=== PATIENT | female | born 1960 | race African-American/Black ===

== ENCOUNTER → 2016-03-12 | Outpatient (CLI) | payer OTHER ==
[~2016-03-12] MED LIST: ADVIL LIQUI-GE200 MG; ALEVE220 MG PO; AMLODIPINE BESY10 MG; AMOXICILLIN 50500 M1 PO; CIPROFLOXACIN500 M1 PO; FLAGYL500 MG PO; NORVASC10 MG PO
== END ==
LOC: HYPER 07:05
DX: I89.0 Lymphedema, not elsewhere classified (principal); I10 Essential (primary) hypertension

== ENCOUNTER → 2016-06-18 | Outpatient (CLI) | payer OTHER | LOC: HYPER 04-09 15:42 | DX: I89.0 Lymphedema, not elsewhere classified (principal); I10 Essential (primary) hypertension ==

== ENCOUNTER → 2016-07-16 | Outpatient (CLI) | payer OTHER | LOC: HYPER 07:09 | DX: I89.0 Lymphedema, not elsewhere classified (principal); I10 Essential (primary) hypertension ==

== ENCOUNTER → 2016-08-12 | Outpatient (CLI) | payer OTHER | LOC: HYPER 07:03 | DX: I89.0 Lymphedema, not elsewhere classified (principal); I10 Essential (primary) hypertension ==

== ENCOUNTER 2016-08-27 13:26 | Emergency (ER) | payer OTHER ==
[~2016-08-27] VITALS: Ht 149.9 cm; Wt 91.2 kg
[2016-08-27] MEDS ORDERED: PLAVIX 300 MG300 M1 PO (13:43)
[2016-08-27] MEDS ORDERED: NORCO 10-325 T1 EACH PO (13:43)
[2016-08-27] MEDS ORDERED: HYDROCHLOROTH12.5 M1 PO (13:44)
[2016-08-27] MEDS ORDERED: LISINOPRIL20 MG PO (13:46)
[2016-08-27] MEDS ORDERED: NORCO 5-325 TA1 EACH PO (14:05)
[2016-08-27 14:19] VITALS: BP 162/85
== END 2016-08-27 14:06 | disposition home or self-care (01) ==
LOC: ER 13:26
DX: M25.552 Pain in left hip (principal); G89.29 Other chronic pain; M54.5 Low back pain; I89.0 Lymphedema, not elsewhere classified; I10 Essential (primary) hypertension; M41.9 Scoliosis, unspecified

== ENCOUNTER 2017-02-08 09:20 | Inpatient (IN) | payer OTHER ==
[~2017-02-08] VITALS: Ht 149.9 cm; Wt 76.7 kg
--- NOTE | ~2017-02-08 | HC ---
[facility] [place] [address] CONSULTATION Name: DULCE MARIA WELLS Room #: 424-[facility] IN M.R.#: [id number] Admission: 02/08/17 Attend Phys: Mejia Aldridge MD Discharge: 02/11/17 Date of : 60 Report #: [id number] THIS REPORT FOR: //name// CC: Mejia Hsieh DATE OF SERVICE: 02/08/2017 REASON FOR CONSULTATION: Chronic lymphedema of lower extremities with cellulitis. HISTORY OF PRESENT ILLNESS: The patient is a very pleasant, nondiabetic, 57-year-old woman, seen many times in the past by Dr. Flaco Hsieh in the clinic. She suffers from chronic lymphedema of unknown etiology. She has been under the care recently of the Lymphedema Clinic with lymphedema wraps. The patient presented herself to the ER, knowing that her lower extremities were more swollen, more red, more painful and draining. She particularly had some pain in the area of the knees. She had more difficulty ambulating. Wound care was consulted due to cellulitis of her legs and wounds noted in her skin creases of the legs. PAST MEDICAL HISTORY: Asthma, hypertension and chronic lymphedema. MEDICATIONS: Include Plavix, lisinopril and hydrochlorothiazide. ALLERGIES: No known drug allergies. SOCIAL HISTORY: The patient lives with a friend. FAMILY HISTORY: Noncontributory. REVIEW OF SYSTEMS: Redness and pain in the legs. PHYSICAL EXAMINATION: GENERAL: Shows mildly febrile 57-year-old woman. VITAL SIGNS: Temperature 38, blood pressure 166/82 and pulse 100. HEENT: Mucous membranes are moist. NECK: Supple. LUNGS: Respirations unlabored. ABDOMEN: Obese. EXTREMITIES: Examination of the lower extremities shows chronic lymphedema of both lower extremities, which is marked. There were deep skin creases particularly behind the left knee, in the right knee and also at the ankle in the skin creases. There is excess moisture and the skin is macerated and there is a foul odor. There is no open wound. There is some mild redness and tenderness of the lower extremities, particularly in these areas. [address] [address] CONSULTATION Name: DULCE MARIA WELLS Room #: 424-[facility] IN M.R.#: [id number] Admission: 02/08/17 Attend Phys: Mejia Aldridge MD Discharge: 02/11/17 Date of : 60 Report #: [id number] LABORATORY: Potassium 2.3. Urinalysis positive for nitrite and ketones. ASSESSMENT: 1. Urinary tract infection. 2. Hypokalemia. 3. Chronic lymphedema of lower extremities. 4. Cellulitis of right and left leg. 5. Maceration of the skin in the deep skin creases behind the left knee, particularly on the right knee and in the skin creases at the ankles. PLAN: The patient was started on IV vancomycin. We will keep her legs elevated. We will use InterDry in the skin creases to decrease moisture and inflammation. We will notify Dr. Hsieh, patient is in the hospital. Once cellulitis is treated, patient can follow up in the Lymphedema Clinic. No open wounds are present. Wound care team will follow. <ELECTRONICALLY SIGNED> By: Jw Gutierrez MD 02/12/17 0719 [id number] Jw Gutierrez MD /nt
--- NOTE | ~2017-02-08 | HC ---
[facility] [place] [address] CONSULTATION Name: DULCE MARIA WELLS Room #: [facility]- ADM IN M.R.#: [id number] Admission: 02/08/17 Attend Phys: Mejia Aldridge MD Discharge: Date of : 60 Report #: [id number] THIS REPORT FOR: //name// CC: Mejia Hsieh DATE OF SERVICE: 02/09/2017 ATTENDING PHYSICIAN: Dr. Aldridge. REASON FOR EVALUATION: Gram-negative septicemia. HISTORY OF PRESENT ILLNESS: Chart reviewed, patient examined. This is a 57-year-old with a longstanding history of lymphedema, noted increasing pain associated with bilateral lower extremities over the course of the last several days as well as some dyskinesias. [facility] Per the evaluations, the urinalysis collected, which was not particularly significant 0-5 white cells, 10-30 bacteria; however, both urine and blood cultures now with the latter with 1/2 with growth of gram-negative rods. She denies any localizing signs or symptoms of genitourinary tract. She is not having pulmonary related complaints either, has been generally afebrile course of the day, although she had low grade temperature elevations yesterday, empirically started on piperacillin-tazobactam as well as vancomycin. ALLERGIES: None known. MEDICATIONS: Include clopidogrel, lisinopril, Zosyn, hydrocodone, vancomycin, p.r.n. analgesics, antiemetics. PAST MEDICAL HISTORY: As noted above, history of hypertension and scoliosis. SOCIAL HISTORY: Nonsmoker, no ethanol. FAMILY HISTORY: Noncontributory. REVIEW OF SYSTEMS: As above. PHYSICAL EXAMINATION: GENERAL: She is somewhat anxious. She is pleasant, alert, cooperative, appears somewhat chronically ill. VITAL SIGNS: Temperature 98.4, pulse 112, respirations 22, blood pressure 157/101. SKIN: Warm, dry, no rashes. HEENT: Unremarkable, has some poor dentition. NECK: Supple. LUNGS: Diminished breath sounds, generally clear. [facility] [address] [place] [address] CONSULTATION Name: DULCE MARIA WELLS Room #: 424-[facility] IN M.R.#: [id number] Admission: 02/08/17 Attend Phys: Mejia Aldridge MD Discharge: Date of : 60 Report #: [id number] HEART: Regular, tachycardic. I do not appreciate any murmur. ABDOMEN: Soft, nontender, nondistended. There is no CVA tenderness. There are no peritoneal signs. EXTREMITIES: Lower extremities have convincing evidence of lymphedema, some mild to moderate degree of inflammation noted with some dermopathy, appears to be chronic. GENITOURINARY AND RECTAL: Deferred. LABORATORY DATA: As described above, 1/2 blood cultures is positive for gram-negative rods. Urine culture with gram-negative rods. Electrolytes: Sodium 145, potassium 2.8, chloride 109, bicarbonate 29, BUN and creatinine 6 and 0.6 and anion gap of 7, glucose of 92. LFTs unremarkable. Albumin of 2.5, total protein 6.3, estimated GFR 125. CBC: White count of 6.6, H and H 8.9 and 27.8, platelets of 172. Lactic acid 1.1. ASSESSMENT: Gram-negative septicemia and no symptoms seemed to involve lower extremities in the setting of lymphedema. Given the scenario, I think it is more likely a genitourinary tract source. We will see if the blood and urine cultures matchup. Continue the empiric therapy for now. I think I would be able to pare down and discontinue the vancomycin. We will notify Dr. Gabriel who will follow the patient starting 02/10/2017. <ELECTRONICALLY SIGNED> By: Edgard Brown MD 02/10/17 1130 [id number] Edgard Brown MD /nt
--- NOTE | ~2017-02-08 | H ---
[facility] [place] [address] HISTORY AND PHYSICAL Name: DULCE MARIA WELLS Room #: 424-P [facility] IN M.R.#: [id number] Admission: 02/08/17 Attend Phys: Mejia Aldridge MD Discharge: 02/11/17 Date of : 60 Report #: [id number] THIS REPORT FOR: //name// CC: Mejia Hsieh DATE OF SERVICE: 02/08/2017 REASON FOR PRESENTATION: Worsening of the lymphedema. HISTORY OF PRESENT ILLNESS: This is a 57-year-old with past medical history of hypertension, chronic lymphedema. She has been seen by the wound care facility on numerous places including [facility], and our facility here. She told me that her wrap should be changed twice a day and had missed her appointment in the last couple of weeks due to issues with the transportation. She reported to the Emergency Room this morning, complaining of excessive weakness in both lower extremities. She also reported occasional leg cramps. The knees pain had been progressively worsening in severity. She has difficulty ambulating; however, she uses a walker. She was not having any fever or chills. She does not know of any sores or ulcers on her back or her lower extremities. She used to have home health nursing, visiting with her, regarding her wound care; however, they signed off the case and advised her to follow up with regarding her wounds. She tells me that she had been recently admitted to [facility] and she had stent placed on her legs. The details of those are unavailable for me. She is maintained on hydrochlorothiazide and her potassium was also on the low side when she presented. PAST MEDICAL HISTORY: 1. Hypertension. 2. Mild asthma. 3. Scoliosis surgery. 4. Chronic lymphedema. MEDICATIONS: 1. Plavix. 2. Lisinopril. 3. Hydrochlorothiazide. ALLERGIES: No known drug allergies. SOCIAL HISTORY: She lives with a friend. No drug or alcohol abuse. 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 FAMILY HISTORY: Mom with breast cancer. Her dad with a heart attack and had heart issues. [address] [address] HISTORY AND PHYSICAL Name: DULCE MARIA WELLS Room #: 424-P [facility] IN M.R.#: [id number] Admission: 02/08/17 Attend Phys: Mejia Aldridge MD Discharge: 02/11/17 Date of : 60 Report #: [id number] REVIEW OF SYSTEMS: GENERAL: No fever or chills. CARDIOVASCULAR: No chest pain or palpitation; however, significant edema. PULMONARY: No cough or hemoptysis. GASTROINTESTINAL: No nausea or vomiting. GENITOURINARY: No frequency, no urgency. 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 SKIN: Extensive lymphedema. NEUROLOGICAL: No headache, no dizziness. PHYSICAL EXAMINATION: GENERAL: She is alert, oriented. VITAL SIGNS: Blood pressure is mildly elevated at 166/82, pulse rate is 115, temperature is 38. HEAD AND NECK: No jugular venous distention, no bruit, no thyromegaly. However, poor dental hygiene is noted. CHEST: Decreased air entry bilaterally. CARDIOVASCULAR: Regular, with no rub detected distant, though. ABDOMEN: Soft, nontender with a periumbilical hernia. LOWER EXTREMITIES: Extensive lymphedema with foul smell all over the lower extremities. LABORATORY DATA: Reviewed. Potassium is 2.3. AST is mildly elevated at 43. Hemoglobin is 10.5. UA with +1 ketones and positive nitrite. IMAGING: No new imaging. ASSESSMENT, IMPRESSION, AND PLAN: 1. Bilateral lymphedema with some sort of cellulitis. 2. Hypokalemia. 3. Chronic venous stasis changes. 4. Recent stent placement in the patient's lower extremity vessels, details not available. 5. Remote history of kidney cyst. 6. Remote history of ovarian mass. 7. Debility. 8. Anemia. 9. Admission. 10. Cultures were obtained given her UA finding. 11. Started on vancomycin and Zosyn. 12. Replace potassium. 13. Hold hydrochlorothiazide. 14. Resume lisinopril for her blood pressure. 15. Consult wound care. 16. I doubt she will be able to manage her issues given her living arrangement [address] [address] HISTORY AND PHYSICAL Name: DULCE MARIA WELLS Room #: 424-P [facility] IN M.R.#: [id number] Admission: 02/08/17 Attend Phys: Mejia Aldridge MD Discharge: 02/11/17 Date of : 60 Report #: [id number] and she will need either a penitentiary facility or an LTAC facility given the extensive lymphedema. <ELECTRONICALLY SIGNED> By: Mejia Aldridge MD 02/17/17 0632 1111 1143 Mejia Aldridge MD /nt
[~2017-02-08 09:20] MED LIST changes: +HYDROCHLOROTH12.5 M1 PO; +LISINOPRIL20 MG PO; +NORCO 10-325 T1 EACH PO; +NORCO 5-325 TA1 EACH PO; +PLAVIX 300 MG300 M1 PO
[2017-02-08 09:23] VITALS: BP 155/74
[2017-02-08 10:19] LABS: HEMATOCRIT 32.9 % (37.0-47.0); HEMOGLOBIN 10.5 gm/dL (12.0-15.0); MCH 25.9 pg (26.0-34.0); MCV 80.9 fL (80.0-100.0); PLATELET COUNT 200 thou/uL (150-400); RBC 4.06 mil/uL (4.20-5.00); RDW 14.7 % (10.5-14.5); WBC 7.7 thou/uL (4.0-11.0)
[2017-02-08 10:20] LABS: MANUAL DIFF YES
[2017-02-08 10:26] LABS: CALCIUM 9.2 mg/dL (8.5-10.1); CREATININE 0.7 mg/dL (0.6-1.0)
[2017-02-08 10:30] LABS: POTASSIUM 2.3 mmol/L (3.5-5.1)
[2017-02-08 10:32] LABS: ALBUMIN 3.5 g/dL (3.4-5.0); TOTAL BILIRUBIN 0.7 mg/dL (<0.1-1.0); TOTAL PROTEIN 7.9 g/dL (6.4-8.2)
[2017-02-08 10:35] LABS: URINE BILIRUBIN NEGATIVE (Negative); URINE BLOOD TRACE (Negative); URINE COLOR YELLOW; URINE GLUCOSE-RANDOM* NEGATIVE (Negative); URINE KETONES 1+ (Negative); URINE PROTEIN (DIPSTICK) NEGATIVE (Negative); URINE SPECIFIC GRAVITY <= 1.005 (1.003-1.035); URINE UROBILINOGEN 0.2 E.U./dl (0.2-1.0)
[2017-02-08 10:36] LABS: URINE LEUKOCYTES-REFLEX 1+ (Negative)
[2017-02-08 10:43] LABS: CASTS None Seen /LPF (None Seen); CRYSTALS None Seen /LPF (None Seen); SQUAMOUS 0-3 Few /LPF (0-3); URINE RBC 0-2 Rare /HPF (0-2); URINE WBC-REFLEX 0-5 Rare /HPF (0-5)
[2017-02-08 11:00] LABS: ABSOLUTE NEUTROPHILS 7.2 thou/uL (1.4-8.2); ANISOCYTOSIS 1+; HYPOCHROMASIA 1+; TOTAL CELL COUNT 100
[2017-02-08 11:18] VITALS: BP 166/82
[2017-02-08 11:28] VITALS: BP 174/68
[2017-02-08 12:15] VITALS: BP 167/81
[2017-02-08 15:50] VITALS: BP 143/68
[2017-02-08 20:46] VITALS: BP 126/50
[2017-02-09 03:46] LABS: HEMATOCRIT 27.8 % (37.0-47.0); HEMOGLOBIN 8.9 gm/dL (12.0-15.0); MCH 26.3 pg (26.0-34.0); MCHC 32.1 g/dL (28.0-37.0); MCV 81.8 fL (80.0-100.0); RBC 3.4 mil/uL (4.20-5.00); RDW 15.2 % (10.5-14.5); WBC 6.6 thou/uL (4.0-11.0)
[2017-02-09 04:05] LABS: ALBUMIN 2.5 g/dL (3.4-5.0); CALCIUM 8.2 mg/dL (8.5-10.1); CREATININE 0.6 mg/dL (0.6-1.0); TOTAL BILIRUBIN 0.4 mg/dL (<0.1-1.0); TOTAL PROTEIN 6.3 g/dL (6.4-8.2)
[2017-02-09 04:13] LABS: POTASSIUM 2.8 mmol/L (3.5-5.1)
[2017-02-09 04:24] VITALS: BP 134/61
[2017-02-09 08:13] VITALS: BP 157/101
[2017-02-09 16:45] VITALS: BP 157/90
[2017-02-09 19:16] VITALS: BP 150/72
[2017-02-10 03:42] VITALS: BP 152/72
[2017-02-10 05:51] LABS: HEMATOCRIT 28.9 % (37.0-47.0); HEMOGLOBIN 9.2 gm/dL (12.0-15.0); MCHC 31.7 g/dL (28.0-37.0); MCV 82.1 fL (80.0-100.0); RBC 3.52 mil/uL (4.20-5.00); RDW 15.3 % (10.5-14.5); WBC 6.6 thou/uL (4.0-11.0)
[2017-02-10 06:11] LABS: ALBUMIN 2.4 g/dL (3.4-5.0); CALCIUM 8.2 mg/dL (8.5-10.1); CREATININE 0.6 mg/dL (0.6-1.0); POTASSIUM 3.8 mmol/L (3.5-5.1); TOTAL BILIRUBIN 0.4 mg/dL (<0.1-1.0); TOTAL PROTEIN 6.1 g/dL (6.4-8.2)
[2017-02-10 07:45] VITALS: BP 159/91
[2017-02-10 15:25] VITALS: BP 153/88
[2017-02-10 19:48] VITALS: BP 133/79
[2017-02-11 04:15] VITALS: BP 147/100
[2017-02-11 06:03] LABS: HEMATOCRIT 30.1 % (37.0-47.0); HEMOGLOBIN 9.8 gm/dL (12.0-15.0); MCH 26.7 pg (26.0-34.0); MCHC 32.7 g/dL (28.0-37.0); MCV 81.6 fL (80.0-100.0); RBC 3.68 mil/uL (4.20-5.00); RDW 14.8 % (10.5-14.5); WBC 7.1 thou/uL (4.0-11.0)
[2017-02-11 06:23] LABS: ALBUMIN 2.5 g/dL (3.4-5.0); CALCIUM 8.6 mg/dL (8.5-10.1); CREATININE 0.7 mg/dL (0.6-1.0); MAGNESIUM 1.7 mg/dL (1.8-2.4); PHOSPHORUS 2.8 mg/dL (2.5-4.9); POTASSIUM 4.4 mmol/L (3.5-5.1)
[2017-02-11 07:44] VITALS: BP 136/83
[2017-02-11] MEDS ORDERED: AUGMENTIN 875-1 EACH PO (15:16)
[2017-02-11] MEDS ORDERED: NORCO 5-325 TA1 EACH PO (15:16)
== END 2017-02-11 17:52 | DRG 871 ==
LOC: ER 09:20 → EROBS 10:38 → 4E 10:38
PROVIDERS: Emergency Medicine; Hospitalist
DX: A41.50 Gram-negative sepsis, unspecified (principal); E43 Unspecified severe protein-calorie malnutrition; L03.116 Cellulitis of left lower limb; L03.115 Cellulitis of right lower limb; T69.022A Immersion foot, left foot, initial encounter; E46 Unspecified protein-calorie malnutrition; N10 Acute pyelonephritis; E87.6 Hypokalemia; I10 Essential (primary) hypertension; M41.9 Scoliosis, unspecified; M19.90 Unspecified osteoarthritis, unspecified site; I89.0 Lymphedema, not elsewhere classified; K42.9 Umbilical hernia without obstruction or gangrene; J45.909 Unspecified asthma, uncomplicated; I87.8 Other specified disorders of veins; D64.9 Anemia, unspecified; K59.00 Constipation, unspecified; I73.9 Peripheral vascular disease, unspecified; L30.8 Other specified dermatitis; B96.20 Unspecified Escherichia coli [E. coli] as the cause of diseases classified elsewhere; Z80.3 Family history of malignant neoplasm of breast; Z68.34 Body mass index [BMI] 34.0-34.9, adult; Z82.49 Family history of ischemic heart disease and other diseases of the circulatory system
CPT/HCPCS: 10183